=== PATIENT | female | born 1985 | race Caucasian/White ===

== ENCOUNTER 2025-02-16 12:44 | Emergency (ER) | payer OTHER ==
[~2025-02-16] VITALS: Ht 160 cm; Wt 97.0 kg
[2025-02-16 12:53] VITALS: TEMP 98.4
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
[2025-02-16 14:33] LABS: Hematocrit 37.5 % (36.0-46.0); Hemoglobin 12.9 g/dL (12.2-16.2); Mean Corpuscular Hemoglobin 32.0 pg (28.0-32.0); Mean Corpuscular Volume 92.9 fL (80.0-100.0); Nucleated Red Blood Cells % 0.0 %
[2025-02-16 14:52] LABS: Alanine Aminotransferase 22 U/L (7-40); Albumin 4.4 g/dL (3.2-4.8); Alkaline Phosphatase 76 U/L (46-116); Anion Gap 14 (5-15); BUN/Creatinine Ratio 11.1 (10.0-20.0); Blood Urea Nitrogen 10 mg/dL (9-23); Calcium 9.5 mg/dL (8.7-10.4); Carbon Dioxide 21 mmol/L (20-31); Chloride 104 mmol/L (98-107); Creatine Kinase IFCC 76 U/L (34-145); Sodium 139 mmol/L (136-145); Total Protein 7.6 g/dL (5.7-8.2)
[2025-02-16 14:53] LABS: Bilirubin, Total 0.2 mg/dL (0.2-1.0); Glucose 329 mg/dL (74-106); Potassium 3.4 mmol/L (3.5-5.1)
[2025-02-16] MEDS: IOHEXOL 350 MG/ML 100ML IJ ONE (16:23)
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
[2025-02-16 17:17] LABS: Urine Protein, UAD 1+ (Negative)
[2025-02-16] MEDS ORDERED: KETOROLAC TROMETH 30 MG/ML 1ML VIAL IV ONE (17:30)
[2025-02-16] MEDS: SODIUM CHLORIDE 0.9% 1,000 ML IV ONE (17:51)
[2025-02-16] MEDS: HYDROcodone-ACET 5/325MG TAB PO ONE (17:52)
[2025-02-16] MEDS: KETOROLAC TROMETH 60MG/2ML VIAL IM ONE (17:57)
[2025-02-16 19:00] VITALS: BP 148/86; PULSE 94; RESP 18; O2SAT 98
--- NOTE | 2025-02-18 10:09 | ECG ---
[facility] Test Date: 2025-02-16 Test Time: 12:41:14 Pat Name: OC CUI Department: Room: Gender: F Gullet Slitter: AGNES : 1985 Requested By: ALEXANDRA BOLIVAR Order Number: [id number] Reading MD: Measurements Intervals Reynolds Rate: 100 P: 49 UT: 156 QRS: 42 QRSD: 94 T: 28 QT: 350 QTc: 452 Interpretive Statements Sinus tachycardia Please click the below link to view image of tracing.
== END 2025-02-16 19:01 | disposition home or self-care (01) ==
LOC: EDBD 12:44 → ER 12:44
DX: S20.219A Contusion of unspecified front wall of thorax, initial encounter (principal); Z90.49 Acquired absence of other specified parts of digestive tract; V43.52XA Car driver injured in collision with other type car in traffic accident, initial encounter; Y93.I9 Activity, other involving external motion; Y92.488 Other paved roadways as the place of occurrence of the external cause; Y99.8 Other external cause status
CPT/HCPCS: 36415; 71275; 80053; 81001; 82550; 84484; 85025; 93005; 96360; 96372; 99285; J1885; J7030; Q9967